=== PATIENT | male | born 1985 | race Two or more races ===

== ENCOUNTER 2018-12-10 20:00 | Emergency (ER) | payer MEDICAID, OTHER ==
[~2018-12-10] VITALS: Ht 177.8 cm; Wt 136.1 kg
[2018-12-10 20:09] VITALS: BP 164/99
[2018-12-10] MEDS ORDERED: KETOROLAC TROMETHAMINE INJ 60 MG/2 ML VIAL IM ONE (21:00)
[2018-12-10] MEDS ORDERED: KETOROLAC TROMETHAMINE INJ 30 MG/ML VIAL ONE (21:02)
== END 2018-12-10 21:41 | disposition home or self-care (01) ==
LOC: ER 20:07
DX: S93.691A Other sprain of right foot, initial encounter (principal); E66.01 Morbid (severe) obesity due to excess calories; Z68.41 Body mass index [BMI] 40.0-44.9, adult; X50.9XXA Other and unspecified overexertion or strenuous movements or postures, initial encounter; Y93.01 Activity, walking, marching and hiking; Y92.828 Other wilderness area as the place of occurrence of the external cause; Y99.8 Other external cause status
CPT/HCPCS: 73630; 96372; 99283; J1885